=== PATIENT | male | born 1995 | race Caucasian/White ===

== ENCOUNTER 2022-03-06 14:56 | Outpatient (REF) | payer BC, SELFPAY ==
[2022-03-06 16:00] LABS: SARS PCR* Negative SARS-CoV-2 (Negative)
== END 2022-03-06 14:57 | disposition home or self-care (01) ==
LOC: LAB 14:56
PROVIDERS: PCP Family Medicine; Visit Provider Internal Medicine
DX: Z20.822 Contact with and (suspected) exposure to COVID-19 (principal)
CPT/HCPCS: 87635

== ENCOUNTER 2022-03-10 20:03 | Outpatient (CLI) | payer BC, SELFPAY | END 2022-03-10 20:04 | disposition home or self-care (01) | PROVIDERS: PCP Family Medicine; Visit Provider Internal Medicine | DX: G47.10 Hypersomnia, unspecified (principal) | CPT/HCPCS: 95810 ==

== ENCOUNTER 2023-07-11 19:38 | Emergency (ER) | payer BC, SELFPAY ==
[2023-07-11 19:41] VITALS: BP 143/88; PULSE 130; RESP 18; TEMP 37.4; O2SAT 95; BMI 29.9
--- NOTE | 2023-07-11 19:57 | XR_ITS ---
INDICATION: FEVER. TECHNIQUE: ONE VIEW CHEST. COMPARISON: NONE. FINDINGS: FAINT DENSITY IN THE RETROCARDIAC LUNG IS PRESENT. NO PLEURAL EFFUSION OR PNEUMOTHORAX. NO FRACTURE. CARDIAC SILHOUETTE NORMAL. IMPRESSION: POSSIBLE LEFT BASILAR INFILTRATE.
--- NOTE | 2023-07-11 20:00 | ED.GENADULT ---
HPI - General Adult General Chief complaint: Chest Pain Stated complaint: fever, headache Time Seen by Provider: 07/11/23 19:50 History of Present Illness HPI narrative: Patient is a 28-year-old he gentleman who has history of asthma who woke this morning not feeling well with fever chills body aches and malaise. He has had nonproductive cough. He has had no other significant symptoms but his symptoms have worsened throughout the day and as result becomes the emergency room. He has no stiffness his neck. No bowel or bladder symptoms no abdominal pain. Patient states she has otherwise been in good health. He takes no home medications at this time. Related Data Previous Rx's Medication Instructions Recorded ofloxacin 0.3 % eye drops See Rx Instructions ophthalmic 05/15/23 (eye) .COMPLEX #10 mL Allergies Allergy/AdvReac Type Severity Reaction Status Date / Time Sulfa (Sulfonamide Allergy Mild Rash Verified 05/15/23 12:16 Antibiotics) Review of Systems Status of ROS: Reports: 10 or more systems reviewed and unremarkable except as noted in History and below Exam Narrative: Exam Narrative: EXAM GENERAL: Patient appears comfortable and well. EYES: No scleral icterus. ENT: Tympanic membranes and oropharynx normal. THYROID: no thyroid nodules or thyromegaly. LYMPH: No supraclavicular or cervical lymphadenopathy. SKIN: Visible skin seen during exam normal or with benign process only. EXT: No dependent lower extremity pedal edema. HEART: Regular rate and rhythm with no murmurs, rubs, or gallops. Mild tachycardia noted. LUNGS: Scattered rhonchi noted bilaterally. ABD: Soft, non tender, non distended. PSYCH: Good eye contact, speech is not pressured. Const: Vital Signs, click to edit/add: Vital Signs - 24 hr 07/11/23 19:41 Temperature 99.3 F Pulse Rate [Left P ulse Oximeter] 130 H Respiratory Rate 18 Blood Pressure [Ri ght Upper Arm] 143/88 H Pulse Oximetry 95 Oxygen Delivery Me thod Room Air Course Course ED Course: Patient seen examined. Viral swab pending CBC basic metabolic panel blood cultures x2 troponin EKG portable chest x-ray ordered. 1 L of normal saline given 1000 mg of Tylenol given. Vital Signs Vital signs: Initial Vital Signs Temperature 99.3 F 07/11/23 19:41 Temperature Source Oral 07/11/23 19:41 Pulse Rate 130 H 07/11/23 19:41 Pulse Rhythm Regular 07/11/23 19:41 Respiratory Rate 18 07/11/23 19:41 Blood Pressure 143/88 H 07/11/23 19:41 Blood Pressure Mean 106 H 07/11/23 19:41 Blood Pressure Position Sitting 07/11/23 19:41 Pulse Oximetry 95 07/11/23 19:41 Oxygen Delivery Method Room Air 07/11/23 19:41 Vital Signs Temperature 99.3 F 07/11/23 19:41 Pulse Rate 130 H 07/11/23 19:41 Respiratory Rate 18 07/11/23 19:41 Blood Pressure 143/88 H 07/11/23 19:41 Pulse Oximetry 95 07/11/23 19:41 Oxygen Delivery Method Room Air 07/11/23 19:41 Temperature 99.3 F 07/11/23 19:41 Pulse Rate 130 H 07/11/23 19:41 Respiratory Rate 18 07/11/23 19:41 Blood Pressure 143/88 H 07/11/23 19:41 Pulse Oximetry 95 07/11/23 19:41 Oxygen Delivery Method Room Air 07/11/23 19:41 Medications Administered Medications: Discontinued Medications Generic Name Dose Route Start Last Admin Trade Name Freq PRN Reason Stop Dose Admin Acetaminophen 1,000 mg 07/11/23 19:57 07/11/23 20:09 Acetaminophen 500 Mg Tablet PO 07/11/23 19:58 1,000 mg ONCE ONE Administration Sodium Chloride 1,000 mls @ 1,000 mls/hr 07/11/23 19:59 07/11/23 21:06 0.9 % Sodium Chloride 1000 Ml IV 07/11/23 20:58 Infused .Q1H ELISA Infusion Medical Decision Making [facility] Narrative Medical decision making narrative: Patient is a 28-year-old gentleman comes in today with fevers mild tachycardia shortness of breath and general malaise. I did given L of normal saline as well as reviewed his chest x-ray which showed no acute abnormalities. Laboratory studies are unremarkable EKG shows normal sinus rhythm tachycardic patient test positive for influenza AE. This time will treat with Tamiflu Tylenol Motrin rest and fluids follow up with his primary physician as needed. Differential diagnosis includes but not limited to pneumonia COPD exacerbation congestive heart failure bronchitis pneumothorax pulmonary embolism. Lab Data Labs: Lab Results 07/11/23 07/11/23 Range/Units 19:48 20:10 WBC 7.64 (4.50-11.00) K/uL RBC 4.93 (4.30-5.90) m/uL Hgb 15.0 (13.5-17.5) gm/dL Hct 43.4 (37.0-53.0) % MCV 88 (80-100) fL MCH 30 (26-34) pg MCHC 35 (32-36) gm/dL RDW Coeff of Darlene 12.3 (11.5-15.5) % Plt Count 232 (140-440) K/uL Neut % (Auto) 85.1 H (42.0-72.0) % Lymph % (Auto) 6.5 L (20-44) % Weston % (Auto) 7.1 (0.0-11.0) % Eos % (Auto) 0.5 (0.0-7.0) % Baso % (Auto) 0.4 (0.0-3.0) % Neut # (Auto) 6.50 (1.7-7.0) K/uL Lymph # (Auto) 0.50 L (0.90-2.90) K/uL Weston # (Auto) 0.50 (0.00-0.90) K/UL Eos # (Auto) 0.04 (0.00-0.50) K/uL Baso # (Auto) 0.03 (0.00-0.30) K/uL Abs Immat Gran (auto) 0.03 (0.00-0.30) K/uL Imm/Tot Granulo (auto) 0.4 % Sodium 139 (135-149) mmol/L Potassium 4.0 (3.6-5.1) mmol/L Chloride 106 (96-114) mmol/L Carbon Dioxide 21 (20-32) mmol/L Anion Gap 12 (7-15) mEq/L BUN 12 (5-24) mg/dL Creatinine 0.9 (0.5-1.5) mg/dL Estimated Creat Clear 108.30 Estimated GFR 118 ml/min Glucose 122 H (60-115) mg/dL Calcium 8.9 (8.4-10.6) mg/dL Troponin I < 0.01 L (0.01-0.04) ng/mL SARS-CoV-2 (PCR) Negative SARS-CoV-2 (Negative) Influenza Type A (PCR) POSITIVE PCR FLU A A (Negative) Influenza Type B (PCR) Negative PCR FLU B (Negative) RSV (PCR) Negative PCR RSV (Negative) Discharge Plan Discharge Clinical Impression: Influenza A Patient Disposition: Home, Self-Care Condition: Stable Instructions: Influenza (ED) Additional Instructions: Tamiflu as directed Tylenol Motrin Rest Fluids Follow-up with your doctor as needed. Activity Level: No Restrictions Discharge Diet: Regular Prescriptions: No Action ofloxacin 0.3 % drops See Rx Instructions ophthalmic (eye) .COMPLEX Qty: 10 0RF Rx Instructions: put 1-2 drps into affected eye(s) every 2-4 h x 2 days, then 1-2 drps 4 times/day days 3-7 ophthalmic (eye) Follow Up/Referrals: Devi Sepulveda MD [Primary Care Provider] - Stand Alone Forms: MyHealth Info Instructions
[2023-07-11] MEDS: ACETAMINOPHEN 500 MG TABLET 1000 MG PO (20:09)
[2023-07-11] MEDS: 0.9 % SODIUM CHLORIDE 1000 ml 1,000 ML IV (20:10)
[2023-07-11 20:16] LABS: Hematocrit 43.4 % (37.0-53.0); Mean Corpuscular Hemoglobin 30 pg (26-34); Mean Corpuscular Volume 88 fL (80-100); Red Blood Count 4.93 m/uL (4.30-5.90); White Blood Count* 7.64 K/uL (4.50-11.00)
[2023-07-11 20:17] LABS: Basophils Absolute Auto 0.03 K/uL (0.00-0.30); Basophils Percent Auto 0.4 % (0.0-3.0); Eosinophils Absolute Auto 0.04 K/uL (0.00-0.50); Eosinophils Percent Auto 0.5 % (0.0-7.0); Immature Granulocytes Abs Auto 0.03 K/uL (0.00-0.30); Immature Granulocytes Pct Auto 0.4 %; Lymphocytes Percent Auto 6.5 % (20-44); Mean Corpuscular HGB Conc 35 gm/dL (32-36); Monocytes Percent Auto 7.1 % (0.0-11.0); Neutrophils Percent Auto 85.1 % (42.0-72.0); Platelet Count* 232 K/uL (140-440); RDW Coefficient of Variation % 12.3 % (11.5-15.5)
[2023-07-11 20:20] LABS: Slide Review Reflex No
[2023-07-11 20:32] LABS: Chloride* 106 mmol/L (96-114); Sodium* 139 mmol/L (135-149)
[2023-07-11 20:35] LABS: Anion Gap 12 mEq/L (7-15); Blood Urea Nitrogen* 12 mg/dL (5-24); Carbon Dioxide* 21 mmol/L (20-32); Creatinine* 0.9 mg/dL (0.5-1.5); Estimated Glomerular Filt Rate 118 ml/min; Glucose* 122 mg/dL (60-115)
[2023-07-11 20:36] LABS: PCR FLU A POSITIVE PCR FLU A (Negative); PCR FLU B Negative PCR FLU B (Negative); PCR RSV Negative PCR RSV (Negative); SARS PCR* Negative SARS-CoV-2 (Negative)
[2023-07-11 20:36] LABS: Calcium* 8.9 mg/dL (8.4-10.6)
[2023-07-11 20:59] LABS: Troponin I* < 0.01 ng/mL (0.01-0.04)
== END 2023-07-11 21:32 | disposition home or self-care (01) ==
PROVIDERS: Emergency Provider Internal Medicine; PCP Family Medicine
DX: J09.X2 Influenza due to identified novel influenza A virus with other respiratory manifestations (principal)
CPT/HCPCS: 36415; 71045; 80048; 84484; 85025; 87040; 87631; 93005; 99283; 99284; A9270; J7030